=== PATIENT | female | born 1975 | race Caucasian/White ===

== ENCOUNTER 2018-11-25 03:51 | Emergency (ER) | payer OTHER ==
--- NOTE | 2018-11-25 04:19 | EDM.PDOC ---
ED HPI GENERAL MEDICAL PROBLEM - General Chief Complaint: Abdominal Pain Stated Complaint: SURGERY 11/18/18 CONSTIPATED Time Seen by Provider: 11/25/18 04:18 Source of Information: Reports: Patient, Family (spouse) History Limitations: Reports: No Limitations - History of Present Illness INITIAL COMMENTS - FREE TEXT/NARRATIVE: 43-year-old female presents to the ED with constant rectal pressure discomfort and diffuse lower abdominal cramping pain. She is now 7 days postop L-spine fusion from the [facility]. She believes she is fused from L4 and L5 and S1 level. She hasn't had a good bowel movement since surgery. Has a constant pressure in the rectum but inability to pass stool. No bleeding per rectum. She has used suppositories and a bit of a Fleet enema at home with no relief. Is on Percocet tablets when necessary for pain relief in her low back and she is trying to wean herself off. Onset: Gradual Onset Date: 11/18/18 (At L spine fusion surgery carried out the [facility] on 18 November. 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 (see below) (Continues with Percocet tablets when necessary basis for back pain) Abdomen Pain Score (Numeric/FACES): 9 - Related Data Allergies Allergy/AdvReac Type Severity Reaction Status Date / Time hydrocodone Allergy Hives Verified 11/25/18 04:04 sumatriptan [From Imitrex] Allergy Respiratory Verified 11/25/18 04:06 Distress Home Meds: Home Meds Polyethylene Glycol 3350 [MiraLAX] 17 gm PO BID #1 cont 11/25/18 [Rx] Past Medical History HEENT History: Reports: Allergic Rhinitis Respiratory History: Reports: Bronchitis, Recurrent Gastrointestinal History: Reports: Other (See Below) Other Gastrointestinal History: gastroparesis 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: Musculoskeletal History: Reports: Back Pain, Chronic Psychiatric History: Reports: Anxiety - Past Surgical History HEENT Surgical History: Reports: Oral Surgery Female Surgical History: Reports: Breast Implant, Section, Hysterectomy Neurological Surgical History: Reports: Laminectomy, Lumbar Spine, Spinal Fusion Social & Family History - Tobacco Use Smoking Status *Q: Never Smoker - Caffeine Use Caffeine Use: Reports: None - Recreational Drug Use Recreational Drug Use: No - Living Situation & Occupation Living situation: Reports: Occupation: Employed ED ROS GENERAL - Review of Systems Review Of Systems: See Below Constitutional: Reports: Malaise, Weakness, Fatigue, Decreased Appetite, Weight Loss. Denies: Fever, Chills HEENT: Reports: No Symptoms Respiratory: Reports: No Symptoms Cardiovascular: Reports: No Symptoms Endocrine: Reports: Fatigue GI/Abdominal: Reports: Abdominal Pain, Constipation (See history of present illness) : Reports: Other (He'll she's not passing as much urine is normal.) Musculoskeletal: Reports: Back Pain (Active pain at site of recent surgery where she had spinal fusion carried out) Skin: Reports: No Symptoms ( at L5-S1.) Neurological: Reports: No Symptoms Psychiatric: Reports: No Symptoms Hematologic/Lymphatic: Reports: No Symptoms ED EXAM, GI/ABD - Physical Exam Exam: See Below Exam Limited By: No Limitations General Appearance: Alert, WD/WN, Mild Distress, Other (Very palate in color.) Eyes: Bilateral: Pale Conjunctiva (Marked pallor both conjunctiva.) Throat/Mouth: Other (Tongue is mildly dry and coated) Respiratory/Chest: No Accessory Muscle Use, Chest Non-Tender, Respiratory Distress Cardiovascular: Normal Peripheral Pulses, Regular Rate, Rhythm, No Edema, No Gallop, No Murmur GI/Abdominal Exam: Distended (Diffuse hyperactive bowel sounds throughout. Abdomen is moderately distended and tympanitic to percussion.), Tender (Mostly suprapubic tenderness. I can palpate the colon in this area as well as in the left lower abdomen.), Abnormal Bowel Sounds Rectal (Female) Exam: Other (Stool is present at the anus.) Back Exam: Other Extremities: Normal Inspection (Surgical wound appears to be healing well.), Normal Range of Motion, Non-Tender Neurological: Alert, Oriented, CN II-XII Intact, Normal Cognition Course - Vital Signs Last Recorded V/S: Last Vital Signs Temp 36.7 C 11/25/18 04:00 Pulse 77 02/13/19 04:00 Resp 20 11/25/18 04:00 BP 140/92 H 11/25/18 04:00 Pulse Ox 100 11/25/18 04:00 - Orders/Labs/Meds Orders: Active Orders 24 hr Category Date Time Status Enema [RC] ASDIRECTED Care 11/25/18 04:42 Active Abdomen 1V Flat [CR] Stat Exams 11/25/18 04:18 Taken Meds: Medications Discontinued Medications Generic Name Dose Route Start Last Admin Trade Name Keila PRN Reason Stop Dose Admin Lidocaine HCl 10 ml 11/25/18 04:55 Xylocaine 2% Jelly MUCMEM 11/25/18 04:56 ONETIME ONE Magnesium Citrate 210 ml 11/25/18 06:02 Citrate Of Magnesia PO 11/25/18 06:03 ONETIME ONE - Radiology Interpretation Free Text/Narrative:: 43-year-old female presents to the ED due to constipation. She has had lumbar spine fusion surgery carried out at the [facility] on November 18. She states she's not had a good bowel movement since that time. She of course is on Percocet tablets on a regular basis for chronic pain postoperatively. She has tried a Fleet enema and is been taking Colace and Benefiber by mouth without relief. Has constant pressure in the rectal vault and feeling of need to defecate but unable to do so. Examination I can feel a palpable mass suprapubically. Bowel sounds are active in all 4 quadrants and she is diffusely distended and tympanitic to percussion. No peritoneal signs. Plan KUB to be done to establish how much of constipation issue there is an then decide on a treatment plan - Re-Assessments/Exams Free Text/Narrative Re-Assessment/Exam: 11/25/18 04:55 KUB reveals a large bolus of stool softball size in the rectal vault. The remainder the colon is clear of stool. Plan lidocaine gel to the anus. Will try a Fleet enema with mineral oil first try and break up the constipated stool. Will likely need at least soapsuds enema as well 11/25/18 06:00: Had moderate success with a Fleet enema with mineral oil. She still feels sutures stool yet to calm. She may well go again when she gets home. Advised if she still has rectal pressure and a feeling of incomplete emptying she could take 7 ounces of magnesium citrate which was provided to the ED. She can mix this with 5-6 ounces of juice. In the meantime of advised her to start MiraLAX powder 17 g or 1 scoop twice daily until stools are soft and regular. If she develops diarrhea on this regimen she is to back off to once daily. She is to continue with the MiraLAX powder until she is off narcotics for pain relief. Departure - Departure Time of Disposition: 06:03 Disposition: Home, Self-Care 01 Condition: Fair Clinical Impression: Constipation by delayed colonic transit - Discharge Information *PRESCRIPTION DRUG MONITORING PROGRAM REVIEWED*: Not Applicable *COPY OF PRESCRIPTION DRUG MONITORING REPORT IN PATIENT ANTELMO: Not Applicable Prescriptions: Polyethylene Glycol 3350 [MiraLAX] 17 gm PO BID #1 cont Referrals: PCP,None [Primary Care Provider] - Forms: ED Department Discharge Additional Instructions: Evaluation the emergency room this morning in regards to persistent rectal pain secondary to constipation that has occurred secondary to pain medications being used after low back surgery. As discussed no good bowel movement for the last 5- 7 days. X-ray of the abdomen confirmed large stool bolus in the rectal vault. The remainder the colon is for the most part clear. Therefore treated with a Fleet's enema with mineral oil which did provide partial relief of the stool bolus in the rectal vault. You may well go again is usually get home. If you still feel rectal pressure and are unable to pass the stool you may take 7 ounces of magnesium citrate by mouth mixed with 5 or 6 ounces of juice. This will take one or 2 hours to work and will usually make her bowels work 2 or 3 times ending and diarrhea. Suggest starting MiraLAX powder today 17 g or 1 scoop twice daily until stools are soft and regular. If diarrhea occurs cut back to once daily. Continue this daily as long as you are on narcotic pain medication. This should prevent constipation from reoccurring - My Orders Last 24 Hours: My Active Orders 11/25/18 04:18 Abdomen 1V Flat [CR] Stat 11/25/18 04:42 Enema [RC] ASDIRECTED - Assessment/Plan Last 24 Hours: My Active Orders 11/25/18 04:18 Abdomen 1V Flat [CR] Stat 11/25/18 04:42 Enema [RC] ASDIRECTED
[2018-11-25] MEDS ORDERED: Lidocaine 2% Jelly 10 ML Urojet MUCMEM ONE (04:55)
[2018-11-25] MEDS ORDERED: Magnesium Citrate Solution 296 ML Bottle PO ONE (06:02)
--- NOTE | 2018-11-25 08:16 | CR ---
Abdomen: Supine view of of the abdomen was obtained. Previous surgery is noted at the lumbosacral junction. Calcifications are seen within the pelvis which are compatible with phleboliths. Bowel gas pattern is normal. Extended right side of the liver compatible with so-called Young's lobe is incidentally noted. Impression: 1. Incidental findings. Nothing acute is seen. Diagnostic code #2
== END 2018-11-25 06:21 | disposition home or self-care (01) ==
LOC: JD.ED 03:51
DX: K59.01 Slow transit constipation (principal); Z88.6 Allergy status to analgesic agent; Z88.8 Allergy status to other drugs, medicaments and biological substances
CPT/HCPCS: 74018; 74018-26; 99283; 99284

== ENCOUNTER 2018-11-26 18:35 | Emergency (ER) | payer OTHER ==
--- NOTE | 2018-11-26 20:33 | EDM.PDOC ---
ED HPI GENERAL MEDICAL PROBLEM - General Chief Complaint: Gastrointestinal Problem Stated Complaint: UNABLE TO USE BATHROOM Time Seen by Provider: 11/26/18 19:44 Source of Information: Reports: Patient, Family (), Old Records (ED record 11/25/2018), RN Notes Reviewed History Limitations: Reports: No Limitations - History of Present Illness INITIAL COMMENTS - FREE TEXT/NARRATIVE: Review of medical records finds that the patient was seen in this ED yesterday morning, 11/25/2018, with a complaint of constipation. She had undergone L4-S1 laminectomy and fusion at [facility] on 11/18/2018, and had been prescribed oxycodone 5 mg, of which she was taking half a tablet every 5 hours, on average , along with [id number] Tylenol. The patient had tried rectal suppositories and some fleets enemas, without relief. A KUB was interpreted as having a large amount of stool in the rectum only. Lidocaine gel and enemas provided some relief of stool. She was discharged home with a bottle of magnesium citrate, which she states she took, along with [id number] MiraLAX. The patient now returns to the ED stating that she had some loose bowel movement today, but only with significant bearing down. She feels bloated and is concerned that she is still constipated. She also reports feeling shaky and chilled, having a burning sensation in her chest, insomnia, and dizziness. No recent cough or fever. Here in the ED, the patient's vitals are normal, although it is noted that her oxygen saturation is 100% on room air. The patient's PCP is Callie Reyes. back Pain Score (Numeric/FACES): 5 - Related Data Allergies Allergy/AdvReac Type Severity Reaction Status Date / Time hydrocodone Allergy Hives Verified 11/26/18 18:45 sumatriptan [From Imitrex] Allergy Respiratory Verified 11/26/18 18:45 Distress Home Meds: Home Meds Polyethylene Glycol 3350 [MiraLAX] 17 gm PO BID #1 cont 11/25/18 [Rx] ALPRAZolam [Alprazolam] 1 tab PO DAILY PRN 11/26/18 [History] Cyclobenzaprine [Flexeril] 10 mg PO TID PRN 11/26/18 [History] Escitalopram Oxalate 1 tab PO DAILY 11/26/18 [History] oxyCODONE 2.5 mg PO TID PRN 11/26/18 [History] Past Medical History HEENT History: Reports: Allergic Rhinitis Gastrointestinal History: Reports: Other (See Below) (Mild gastroparesis) 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: Musculoskeletal History: Reports: Back Pain, Chronic Psychiatric History: Reports: Anxiety - Past Surgical History HEENT Surgical History: Reports: Oral Surgery (wisdom teeth extraction) Female Surgical History: Reports: Breast Implant, Section (x 1), Hysterectomy (partial) Neurological Surgical History: Reports: Lumbar Spine (Laminectomy + L4-S1 fusion 11/18/2018, [place]) Dermatological Surgical History: Reports: Plastic Surgical Reconstruction/ Repair (Abdominoplasty) Social & Family History - Family History Family Medical History: Noncontributory - Tobacco Use Smoking Status *Q: Never Smoker - Caffeine Use Caffeine Use: Reports: Other - Alcohol Use Alcohol Use History: Yes Alcohol Use Frequency: Socially - Recreational Drug Use Recreational Drug Use: No - Living Situation & Occupation Living situation: Reports: , with Spouse 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 ED EXAM, GENERAL - Physical Exam Exam: See Below Exam Limited By: No Limitations General Appearance: Alert, WD/WN, No Apparent Distress Eye Exam: Bilateral Eye: EOMI, Normal Inspection Ears: Normal External Exam, Hearing Grossly Normal Nose: Normal Inspection Throat/Mouth: Normal Inspection, Normal Lips, Normal Voice, No Airway Compromise Head: Atraumatic, Normocephalic Neck: Normal Inspection, Full Range of Motion Respiratory/Chest: No Respiratory Distress, Lungs Clear, Normal Breath Sounds, No Accessory Muscle Use Cardiovascular: Normal Peripheral Pulses, Regular Rate, Rhythm, No Edema, No Gallop, No JVD, No Murmur, No Rub Peripheral Pulses: 4+: Radial (L), Radial (R) GI/Abdominal: Normal Bowel Sounds, Soft, Non-Tender, No Organomegaly, No Distention, No Abnormal Bruit, No Mass (Female) Exam: Deferred Rectal (Female) Exam: Normal Exam, Normal Rectal Tone, Other (No stool in rectum ) Back Exam: Full Range of Motion, Other (Well-healing lumbar surgical wound, still covered with Steri-Strips. No associated erythema, swelling, or drainage.) Extremities: Normal Inspection, Normal Range of Motion, No Pedal Edema, Normal Capillary Refill Neurological: Alert, Oriented, Normal Cognition, No Motor/Sensory Deficits Psychiatric: Anxious Skin Exam: Warm, Dry, Intact, Normal Color, No Rash EKG INTERPRETATION EKG Date: 11/26/18 Time: 20:46 Rhythm: NSR Rate (Beats/Min): 78 [place]: LAD-Left [place] Deviation (likely 2 LAFB) P-Wave: Present QRS: Normal (Late transition) ST-T: Normal QT: Normal Comparison: NA - No Prior EKG Course - Vital Signs Last Recorded V/S: Last Vital Signs Temp 36.8 C 11/27/18 00:22 Pulse 80 11/27/18 00:22 Resp 18 11/27/18 00:22 BP 112/75 11/27/18 00:22 Pulse Ox 98 11/27/18 00:22 Orthostatic Blood Pressure [ 116/82 Standing] Orthostatic Blood Pressure [ 120/86 Sitting] Orthostatic Blood Pressure [ 131/87 Supine] - Orders/Labs/Meds Orders: Active Orders 24 hr Category Date Time Status EKG Documentation Completion [RC] STAT Care 11/26/18 20:37 Active Orthostatic Vital Signs [RC] STAT Care 11/26/18 20:37 Active Ang Chest [CT] Stat Exams 11/26/18 22:20 Taken KUB [Abdomen 1V Flat] [CR] Stat Exams 11/26/18 20:05 Taken Labs: Laboratory Tests 11/26/18 11/26/18 11/26/18 Range/Units 20:54 20:54 20:54 WBC 5.18 (3.98-10.04) K/mm3 RBC 3.27 L (3.98-5.22) M/mm3 Hgb 10.2 L (11.2-15.7) gm/L Hct 31.8 L (34.1-44.9) % MCV 97.2 H (79.4-94.8) fl MCH 31.2 (25.6-32.2) pg MCHC 32.1 L (32.2-35.5) g/dl RDW Std Deviation 48.0 H (36.4-46.3) fL Plt Count 268 (182-369) K/mm3 MPV 9.9 (9.4-12.3) fl Neutrophils % (Manual) 64 H (40-60) % Band Neutrophils % 0 (0-10) % Lymphocytes % (Manual) 23 (20-40) % Atypical Lymphs % 0 % Monocytes % (Manual) 13 H (2-10) % Eosinophils % (Manual) 0 L (0.7-5.8) % Basophils % (Manual) 0 L (0.1-1.2) Platelet Estimate Adequate RBC Morph Comment Normal D-Dimer, Quantitative 2.84 H (0.19-0.50) mg/L Sodium 138 (136-145) mEq/L Potassium 4.0 (3.5-5.1) mEq/L Chloride 103 (98-107) mEq/L Carbon Dioxide 26 (21-32) mEq/L Anion Gap 13.0 (5-15) BUN 11 (7-18) mg/dL Creatinine 0.7 (0.55-1.02) mg/dL Est Cr Clr Drug Dosing 87.64 mL/min Estimated GFR (MDRD) > 60 (>60) mL/min BUN/Creatinine Ratio 15.7 (14-18) Glucose 91 (74-106) mg/dL Calcium 9.0 (8.5-10.1) mg/dL Magnesium 2.0 (1.8-2.4) mg/dl Total Bilirubin 0.2 (0.2-1.0) mg/dL AST 93 H (15-37) U/L ALT 98 H (14-59) U/L Alkaline Phosphatase 87 (46-116) U/L Total Protein 6.6 (6.4-8.2) g/dl Albumin 3.0 L (3.4-5.0) g/dl Globulin 3.6 gm/dL Albumin/Globulin Ratio 0.8 L (1-2) TSH 3rd Generation 0.726 (0.358-3.74) uIU/mL Urine Color (Yellow) Urine Appearance (Clear) Urine pH (5.0-8.0) Ur Specific [place] (1.005-1.030) Urine Protein (Negative) Urine Glucose (UA) (Negative) Urine Ketones (Negative) Urine Occult Blood (Negative) Urine Nitrite (Negative) Urine Bilirubin (Negative) Urine Urobilinogen (0.2-1.0) Ur Leukocyte Esterase (Negative) Urine RBC (0-5) /hpf Urine WBC (0-5) /hpf Ur Epithelial Cells (0-5) /hpf Urine Bacteria (FEW) /hpf Urine Mucus (FEW) /hpf 11/26/18 Range/Units 21:02 WBC (3.98-10.04) K/mm3 RBC (3.98-5.22) M/mm3 Hgb (11.2-15.7) gm/L Hct (34.1-44.9) % MCV (79.4-94.8) fl MCH (25.6-32.2) pg MCHC (32.2-35.5) g/dl RDW Std Deviation (36.4-46.3) fL Plt Count (182-369) K/mm3 MPV (9.4-12.3) fl Neutrophils % (Manual) (40-60) % Band Neutrophils % (0-10) % Lymphocytes % (Manual) (20-40) % Atypical Lymphs % % Monocytes % (Manual) (2-10) % Eosinophils % (Manual) (0.7-5.8) % Basophils % (Manual) (0.1-1.2) Platelet Estimate RBC Morph Comment D-Dimer, Quantitative (0.19-0.50) mg/L Sodium (136-145) mEq/L Potassium (3.5-5.1) mEq/L Chloride (98-107) mEq/L Carbon Dioxide (21-32) mEq/L Anion Gap (5-15) BUN (7-18) mg/dL Creatinine (0.55-1.02) mg/dL Est Cr Clr Drug Dosing mL/min Estimated GFR (MDRD) (>60) mL/min BUN/Creatinine Ratio (14-18) Glucose (74-106) mg/dL Calcium (8.5-10.1) mg/dL Magnesium (1.8-2.4) mg/dl Total Bilirubin (0.2-1.0) mg/dL AST (15-37) U/L ALT (14-59) U/L Alkaline Phosphatase (46-116) U/L Total Protein (6.4-8.2) g/dl Albumin (3.4-5.0) g/dl Globulin gm/dL Albumin/Globulin Ratio (1-2) TSH 3rd Generation (0.358-3.74) uIU/mL Urine Color Yellow (Yellow) Urine Appearance Clear (Clear) Urine pH 7.0 (5.0-8.0) Ur Specific [place] 1.015 (1.005-1.030) Urine Protein Negative (Negative) Urine Glucose (UA) Negative (Negative) Urine Ketones Negative (Negative) Urine Occult Blood Negative (Negative) Urine Nitrite Negative (Negative) Urine Bilirubin Negative (Negative) Urine Urobilinogen 0.2 (0.2-1.0) Ur Leukocyte Esterase Negative (Negative) Urine RBC 0-5 (0-5) /hpf Urine WBC 0-5 (0-5) /hpf Ur Epithelial Cells 0-5 (0-5) /hpf Urine Bacteria Occasional (FEW) /hpf Urine Mucus Not seen (FEW) /hpf Meds: Medications Discontinued Medications Generic Name Dose Route Start Last Admin Trade Name Freq PRN Reason Stop Dose Admin Sodium Chloride 500 mls @ 1,000 mls/hr 11/26/18 21:01 11/26/18 21:10 Normal Saline IV 11/26/18 21:30 1,000 mls/hr .BOLUS ONE Administration Sodium Chloride 1,000 mls @ 150 mls/hr 11/26/18 22:30 Normal Saline IV ASDIRECTED YAMILKA - Re-Assessments/Exams Free Text/Narrative Re-Assessment/Exam: 11/26/18 20:24 On rectal examination, no stool whatsoever was palpated. The KUB appears to demonstrate a nonspecific bowel gas pattern. No significant quantity of stool is seen within the colon or rectum. Fusion hardware L4-S1, as well as 3 surgical clips, incidentally noted. Phleboliths incidentally noted in the pelvis. Formal read per the Radiologist pending. 11/26/18 21:01 The patient does not meet criterion for orthostasis, however, it is relatively close, therefore I have ordered a 500 mL bolus of NS. 11/26/18 22:20 Test results discussed with the patient and her . Today's workup is entirely unremarkable, with the exception that her D-dimer is elevated at 2.84. The elevation may very well be because of the patient's recent surgery, but I cannot exclude a PE, particularly in light of her recent surgery. I therefore offered a CT angiogram of the chest to rule out a PE. The patient has agreed to proceed. 11/27/18 00:01 CT angiogram of the chest is read by Rafita as "No acute pulmonary embolus." 11/27/18 00:04 Test results discussed with the patient and her . Tata's workup was entirely unremarkable, and does not explain the cause of the patient's subjective sensation of constipation. I suspect that the patient's symptoms are due to a combination of anxiety and the effect of the opioids. I recommended that she try to get off the opioids as soon as possible, and continue to take her anti-anxiety medications. If her symptoms persist, I would like her to follow-up with her PCP. Departure - Departure Time of Disposition: 00:05 Disposition: Home, Self-Care 01 Condition: Good Clinical Impression: Bloating symptom, Anxiety - Discharge Information *PRESCRIPTION DRUG MONITORING PROGRAM REVIEWED*: Not Applicable *COPY OF PRESCRIPTION DRUG MONITORING REPORT IN PATIENT ANTELMO: Not Applicable Instructions: Generalized Anxiety Disorder, Adult, Abdominal Bloating Referrals: PCP,Not In Area [Primary Care Provider] - Forms: ED Department Discharge Additional Instructions: You were seen in the emergency room for a concern of continued constipation, with the sensation of abdominal bloating, shakiness, chills, a burning sensation in your chest, insomnia and dizziness. Workup in the ER included blood work, a urinalysis, positional blood pressure checks, an x-ray of your abdomen, a CT angiogram of your chest, and an ECG. Your entire workup returned normal. You are not constipated, in fact, no stool was felt in your rectum. You do not have an infection. You are not anemic. There are no electrolyte abnormalities. You are not dehydrated. You do not have a urinary tract infection. There were no abnormal heart rhythms. You do not have a blood clot in your chest. The cause of your symptoms is unclear, but is likely due to a combination of anxiety and the effects of the oxycodone that you are taking. We recommend that you try to get off the oxycodone as soon as possible. Continue to take your anxiety medicines as prescribed. Stay adequately hydrated. If your symptoms persist, please follow-up with your PCP, Callie Reyes. If any other problems, please do not hesitate to return to the ER. - My Orders Last 24 Hours: My Active Orders 11/26/18 20:05 KUB [Abdomen 1V Flat] [CR] Stat 11/26/18 20:37 EKG Documentation Completion [RC] STAT Orthostatic Vital Signs [RC] STAT 11/26/18 22:20 Ang Chest [CT] Stat - Assessment/Plan Last 24 Hours: My Active Orders 11/26/18 20:05 KUB [Abdomen 1V Flat] [CR] Stat 11/26/18 20:37 EKG Documentation Completion [RC] STAT Orthostatic Vital Signs [RC] STAT 11/26/18 22:20 Ang Chest [CT] Stat
[2018-11-26] MEDS ORDERED: Sodium Chloride 0.9% 500 ML IV ONE (21:01)
[2018-11-26] MEDS ORDERED: Sodium Chloride 0.9% 1,000 ML IV SCH (22:30)
--- NOTE | 2018-11-27 10:07 | CR ---
Abdomen: Supine view of the abdomen was obtained. Comparison: Prior supine abdominal x-ray of 11/25/18. Previous lumbar spine surgery is noted. Calcifications are seen within the pelvis compatible with phleboliths. Bowel gas pattern is normal. No discrete soft tissue abnormality is seen. Impression: 1. Incidental findings. Nothing acute is seen. Diagnostic code #2
--- NOTE | 2018-11-27 10:26 | CT ---
CT chest Technique: Multiple axial sections were obtained from above the lung apices inferiorly through the lung bases. Intravenous contrast was utilized. Study performed as a pulmonary angiogram protocol. Findings: Pulmonary arteries are moderately well-opacified. No filling defects are seen to indicate pulmonary embolism. Mediastinum and hilar regions appear unremarkable. No pericardial thickening is seen. Incidental bilateral breast prosthesis is is noted. Small portion of the visualized upper abdominal structures appear within normal limits. Slight scarring or atelectasis noted within the left base. Lungs otherwise are clear. No pleural effusions or pneumothorax is seen. Bone window settings were obtained which show no acute osseous abnormality. Impression: 1. No findings of pulmonary embolism. 2. Other incidental findings. Diagnostic code #2 Agree with preliminary report issued by [employer], preliminary report finalized on 11/27/18, 12:51 AM Central Time
== END 2018-11-27 00:20 | disposition home or self-care (01) ==
LOC: JD.ED 18:35
DX: R14.0 Abdominal distension (gaseous) (principal); F41.9 Anxiety disorder, unspecified; Z88.5 Allergy status to narcotic agent; Z88.8 Allergy status to other drugs, medicaments and biological substances
CPT/HCPCS: 36415; 71275; 74018; 80053; 81001; 83735; 84443; 85007; 85027; 85379; 93005; 96360; 99284; J7040; 93010; 99283

== ENCOUNTER 2022-08-03 19:48 | Emergency (ER) | payer OTHER | END 2022-08-03 21:50 | disposition home or self-care (01) | LOC: JD.ED 19:48 | DX: F41.0 Panic disorder [episodic paroxysmal anxiety] (principal); Z88.5 Allergy status to narcotic agent; Z88.8 Allergy status to other drugs, medicaments and biological substances; Z79.899 Other long term (current) drug therapy; Z90.49 Acquired absence of other specified parts of digestive tract | CPT/HCPCS: 93005; 99284 ==